=== PATIENT | male | born 1985 | race African-American/Black ===

== ENCOUNTER 2017-04-28 19:16 | Emergency (ER) | payer OTHER ==
[~2017-04-28] VITALS: Ht 175.3 cm; Wt 86.2 kg
[2017-04-28 19:37] VITALS: BP 130/84
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
[2017-04-28] MEDS ORDERED: IBUPROFEN 400 MG TABLET ONE (19:48)
[2017-04-28] MEDS ORDERED: HYDROCODONE/APAP 10/325MG 1 EA TABLET ONE (19:48)
[2017-04-28] MEDS ORDERED: IBUPROFEN 400 MG TABLET PO ONE (20:00)
[2017-04-28] MEDS ORDERED: HYDROCODONE/APAP 10/325MG 1 EA TABLET PO ONE (20:00)
== END 2017-04-28 20:11 | disposition home or self-care (01) ==
LOC: ER 19:17
DX: S16.1XXA Strain of muscle, fascia and tendon at neck level, initial encounter (principal); S39.012A Strain of muscle, fascia and tendon of lower back, initial encounter; G89.29 Other chronic pain; Z88.6 Allergy status to analgesic agent; V89.2XXA Person injured in unspecified motor-vehicle accident, traffic, initial encounter; Y93.I9 Activity, other involving external motion; Y92.89 Other specified places as the place of occurrence of the external cause; Y99.9 Unspecified external cause status
CPT/HCPCS: 99283; A4606; Z7610